=== PATIENT | male | born 1990 | race Caucasian/White ===

== ENCOUNTER 2020-08-16 07:44 | Day surgery (SDC) | payer BC, OTHER ==
[2020-08-16] MEDS ORDERED: Ondansetron 4 MG/2 ML SDV IVPUSH ONE (08:06)
[2020-08-16] MEDS ORDERED: Lactated Ringers 1,000 ML IV SCH ×3 (08:15→12:45)
--- NOTE | 2020-08-16 09:29 | EDM.PDOC ---
ED HPI GENERAL MEDICAL PROBLEM - General Chief Complaint: Gastrointestinal Problem Stated Complaint: APPENDIX Time Seen by Provider: 08/16/20 07:56 - History of Present Illness INITIAL COMMENTS - FREE TEXT/NARRATIVE: CHIEF COMPLAINT(S): Abdominal pain HISTORY OF PRESENT ILLNESS: This is a 30-year-old man without any significant past medical history who was sent in from [facility] with appendicitis who comes to the emergency department with a chief complaint of abdominal pain. The patient states that he started to experience vomiting yesterday but has not been able to tolerate any p.o. He denies any hematemesis or bilious emesis. He states that the pain got worse overnight and he describes the pain as sharp right lower quadrant without any radiation. He states that his pain is 6 out of 10. He denies any aggravating or relieving symptoms. He states that he went to the emergency department at the request of his and was diagnosed with appendicitis. He states that his pain is better and he is still experiencing some nausea. He denies any fevers, chills, diarrhea, melena, or hematochezia. He states that his last meal was on Saturday and he last had water approximately 8 hours ago. REVIEW OF SYSTEMS: Constitutional: Denies fever, chills. Eyes: Denies eye pain Ears, Nose, Mouth, & Throat: Denies earache Cardiovascular: Denies chest pain Respiratory: Denies shortness of breath Gastrointestinal: Positive for nausea and vomiting and abdominal pain. Denies diarrhea, hematemesis, bilious emesis, hematochezia, melena Genitourinary: Denies hematuria Skin:Denies a rash Neurological: Denies blurred vision Psychiatric: Denies depression PAST MEDICAL HISTORY: As per history of present illness and as reviewed below otherwise noncontributory. SURGICAL HISTORY: As per history of present illness and as reviewed below otherwise noncontributory. SOCIAL HISTORY: As per history of present illness and as reviewed below otherwise noncontributory. FAMILY HISTORY: As per history of present illness and as reviewed below otherwise noncontributory. EXAMINATION OF ORGAN SYSTEMS/BODY AREAS: Constitutional: Blood pressure is 106/57, heart rate 81, respiratory rate 20 with an oxygen saturation 95% on room air. Temperature 35.7 General: Overall well-appearing man who is in no acute distress Psychiatric: Appropriate mood and affect. Eyes: No scleral icterus or conjunctival erythema ENMT: Moist mucous membranes. No pharyngeal erythema Cardiovascular: Regular, rate, and rythym. No gallops, murmurs, or rubs. Bilateral upper extremity pulses symmetric and intact. No peripheral edema. No JVD. Respiratory: Lungs clear to auscultation bilaterally. No wheezes, rales, or rhonchi. Gastrointestinal: Soft, nondistended, tenderness to palpation in the right lower quadrant. No rebound or guarding. Genitourinary: No suprapubic tenderness Musculoskeletal: Normal range of motion. Skin: No lesions or abrasions. Neurological: Alert, GCS 15 MEDICAL DECISION MAKING AND COURSE IN THE ED WITH INTERPRETATION/REVIEW OF DIAGNOSTIC STUDIES: This is a 30-year-old man without any significant past medical history who comes to the emergency department from [facility] after being accepted for transfer and admission by Dr. Chávez for acute appendicitis. At this time I did review the patient's chart which was faxed over which did reveal a leukocytosis of 13.3 with neutrophilic predominance. BMP is unremarkable. Covid rapid was negative. CT report was sent with the patient which did reveal acute uncomplicated appendicitis without any free air, fistula, or abscess. We did contact [facility] who was able to transfer the images to our system. At this time I will start the patient on maintenance fluids and make the patient n.p.o. I also provide the patient with 4 mg of Zofran for nausea. Patient stated his pain was improved and did not request pain medication at this time. We will obtain a coronavirus swab for admission here. On reevaluation, the patient continued to remain stable and had no worsening of his abdominal pain. Laboratory: Coronavirus is negative. On review of the records, the patient also had already received Zosyn this morning therefore no antibiotics will be given. Per request of Dr. Chávez I contacted Dr. Doyle and he stated he would come and evaluate the patient. Dr. Doyle came and evaluated the patient the patient will be admitted for same-day surgery. DISPOSITION: Patient was admitted for same-day surgery CONDITION: Fair PROCEDURES: None FINAL IMPRESSION(S)/DIAGNOSES: 1. Acute appendicitis Dieudonne Mendez M.D. right lower quadrant Pain Score (Numeric/FACES): 6 - Related Data Allergies Allergy/AdvReac Type Severity Reaction Status Date / Time No Known Allergies Allergy Verified 08/16/20 07:55 Home Meds: Home Meds . [No Known Home Meds] 08/16/20 [History] Past Medical History - Infectious Disease History Infectious Disease History: Reports: Chicken Pox - Past Surgical History HEENT Surgical History: Reports: Tonsillectomy GI Surgical History: Reports: Other (See Below) Other GI Surgeries/Procedures: hernia Social & Family History - Family History Family Medical History: No Pertinent Family History - Caffeine Use Caffeine Use: Reports: Coffee - Recreational Drug Use Recreational Drug Use: No ED ROS GENERAL - Review of Systems Review Of Systems: See Below ED EXAM, GI/ABD - Physical Exam Exam: See Below Course - Vital Signs Last Recorded V/S: Last Vital Signs Temp 36.6 C 08/16/20 13:29 Pulse 56 L 08/16/20 13:44 Resp 16 08/16/20 13:29 BP 110/65 08/16/20 13:44 Pulse Ox 97 08/16/20 13:44 - Orders/Labs/Meds Orders: Active Orders 24 hr Category Date Time Status Admission Status [Patient Status] [ADT] Routine ADT 08/16/20 14:22 Active Admission Status [Patient Status] [ADT] Stat ADT 08/16/20 09:58 Active Blood Glucose Check, Bedside [RC] PRN Care 08/16/20 11:45 Active Communication Order [RC] ROUTINE Care 08/16/20 10:33 Active Notify Provider Vital Signs [RC] ASDIRECTED Care 08/16/20 11:45 Active Oxygen Therapy [RC] PRN Care 08/16/20 11:45 Active RT Aerosol Therapy [RC] ASDIRECTED Care 08/16/20 11:45 Active RT Aerosol Therapy [RC] ASDIRECTED Care 08/16/20 11:45 Active Ready for Discharge [RC] PER UNIT ROUTINE Care 08/16/20 14:24 Active Verify Patient Consent Obtain [RC] ASDIRECTED Care 08/16/20 10:32 Active Vital Signs [RC] Q5M Care 08/16/20 11:45 Active Clear Liquid Diet [DIET] Diet 08/16/20 Dinner Active NPO [Nothing Per Oral Diet] [DIET] Diet 08/16/20 Lunch Active Nothing per Oral After Midnight Diet [DIET] Diet 08/16/20 Lunch Active Acetaminophen/oxyCODONE [Percocet 325-5 MG] Med 08/16/20 12:36 Active 1 tab PO Q6H PRN Albuterol [Proventil Neb Soln] Med 08/16/20 11:45 Active 2.5 mg NEB ONETIME PRN Atropine [Atropine 0.1 MG/ML] Med 08/16/20 11:45 Active 0.5 mg IVPUSH ASDIRECTED PRN Atropine [Atropine 0.1 MG/ML] Med 08/16/20 11:45 Active 1 mg IVPUSH ASDIRECTED PRN Dextrose 50% in Water Med 08/16/20 11:45 Active 50 ml IVPUSH ASDIRECTED PRN EPINEPHrine [EPINEPHrine 1:10,000] Med 08/16/20 11:45 Active 1 mg IVPUSH ASDIRECTED PRN HYDROmorphone [Dilaudid] Med 08/16/20 11:45 Active 0.5 mg IVPUSH .Q5MIN PRN Lactated Ringers [Ringers, Lactated] 1,000 ml Med 08/16/20 10:45 Active IV ASDIRECTED Lactated Ringers [Ringers, Lactated] 1,000 ml Med 08/16/20 12:45 Active IV ASDIRECTED Naloxone [Narcan] Med 08/16/20 11:45 Active 0.1 mg IVPUSH ASDIRECTED PRN Ondansetron [Zofran] Med 08/16/20 11:45 Active 4 mg IVPUSH ONETIME PRN Ondansetron [Zofran] Med 08/16/20 12:36 Active 4 mg IVPUSH Q8H PRN fentaNYL [Sublimaze] Med 08/16/20 11:45 Active 50 mcg IVPUSH Q5M PRN Medication Orders Albuterol (Proventil Neb Soln) 2.5 mg NEB ONETIME PRN PRN Reason: Wheezing Atropine Sulfate (Atropine 0.1 Mg/Ml) 0.5 mg IVPUSH ASDIRECTED PRN PRN Reason: Hypo-perfusion Atropine Sulfate (Atropine 0.1 Mg/Ml) 1 mg IVPUSH ASDIRECTED PRN PRN Reason: Hypo-Perfusion Dextrose/Water (Dextrose 50% In Water) 50 ml IVPUSH ASDIRECTED PRN PRN Reason: Hypoglycemia Epinephrine HCl (Epinephrine 1:10,000) 1 mg IVPUSH ASDIRECTED PRN PRN Reason: ACLS Guidelines Fentanyl (Sublimaze) 50 mcg IVPUSH Q5M PRN PRN Reason: Pain Hydromorphone HCl (Dilaudid) 0.5 mg IVPUSH .Q5MIN PRN PRN Reason: Pain (severe 7-10) Stop: 08/17/20 11:45 Lactated Ringer's (Ringers, Lactated) 1,000 mls @ 150 mls/hr IV ASDIRECTED HANNA Lactated Ringer's (Ringers, Lactated) 1,000 mls @ 125 mls/hr IV ASDIRECTED HANNA Last Admin: 08/16/20 14:11 Dose: 125 mls/hr Documented by: CAM Naloxone HCl (Narcan) 0.1 mg IVPUSH ASDIRECTED PRN PRN Reason: Respiratory Depression Ondansetron HCl (Zofran) 4 mg IVPUSH ONETIME PRN PRN Reason: Nausea/Vomiting Ondansetron HCl (Zofran) 4 mg IVPUSH Q8H PRN PRN Reason: Nausea/Vomiting Oxycodone/Acetaminophen (Percocet 325-5 Mg) 1 tab PO Q6H PRN PRN Reason: Pain Last Admin: 08/16/20 13:53 Dose: 1 tab Documented by: CAM Labs: Laboratory Tests 08/16/20 Range/Units 08:22 SARS-CoV-2 RNA (VERA) NEGATIVE (NEGATIVE) Meds: Medications Generic Name Dose Route Start Last Admin Trade Name Freq PRN Reason Stop Dose Admin Albuterol 2.5 mg 08/16/20 11:45 Proventil Neb Soln NEB ONETIME PRN Wheezing Atropine Sulfate 0.5 mg 08/16/20 11:45 Atropine 0.1 Mg/Ml IVPUSH ASDIRECTED PRN Hypo-perfusion Atropine Sulfate 1 mg 08/16/20 11:45 Atropine 0.1 Mg/Ml IVPUSH ASDIRECTED PRN Hypo-Perfusion Dextrose/Water 50 ml 08/16/20 11:45 Dextrose 50% In Water IVPUSH ASDIRECTED PRN Hypoglycemia Epinephrine HCl 1 mg 08/16/20 11:45 Epinephrine 1:10,000 IVPUSH ASDIRECTED PRN ACLS Guidelines Fentanyl 50 mcg 08/16/20 11:45 Sublimaze IVPUSH Q5M PRN Pain Hydromorphone HCl 0.5 mg 08/16/20 11:45 Dilaudid IVPUSH 08/17/20 11:45 .Q5MIN PRN Pain (severe 7-10) Lactated Ringer's 1,000 mls @ 150 mls/hr 08/16/20 10:45 Ringers, Lactated IV ASDIRECTED HANNA Lactated Ringer's 1,000 mls @ 125 mls/hr 08/16/20 12:45 08/16/20 14:11 Ringers, Lactated IV 125 mls/hr ASDIRECTED HANNA Administration Naloxone HCl 0.1 mg 08/16/20 11:45 Narcan IVPUSH ASDIRECTED PRN Respiratory Depression Ondansetron HCl 4 mg 08/16/20 11:45 Zofran IVPUSH ONETIME PRN Nausea/Vomiting Ondansetron HCl 4 mg 08/16/20 12:36 Zofran IVPUSH Q8H PRN Nausea/Vomiting Oxycodone/Acetaminophen 1 tab 08/16/20 12:36 08/16/20 13:53 Percocet 325-5 Mg PO 1 tab Q6H PRN Administration Pain Discontinued Medications Generic Name Dose Route Start Last Admin Trade Name Freq PRN Reason Stop Dose Admin Dexamethasone Confirm 08/16/20 11:56 Dexamethasone Administered 08/16/20 11:57 Dose 20 mg .ROUTE .STK-MED ONE Fentanyl Confirm 08/16/20 10:43 Sublimaze Administered 08/16/20 10:44 Dose 100 mcg .ROUTE .STK-MED ONE Glycopyrrolate Confirm 08/16/20 12:01 Robinul Administered 08/16/20 12:02 Dose 0.4 mg .ROUTE .STK-MED ONE Lactated Ringer's 1,000 mls @ 150 mls/hr 08/16/20 08:15 08/16/20 08:14 Ringers, Lactated IV 150 mls/hr ASDIRECTED HANNA Administration Bupivacaine HCl/Epinephrine Bitart Confirm 08/16/20 10:45 Sensorc Mpf 0.25%-Epi [id number] Administered 08/16/20 10:46 Dose 30 mls @ as directed .ROUTE .STK-MED ONE Acetaminophen Confirm 08/16/20 10:45 Ofirmev Administered 08/16/20 10:46 Dose 100 mls @ as directed .ROUTE .STK-MED ONE Piperacillin Sod/Tazobactam 50 mls @ 100 mls/hr 08/16/20 11:44 08/16/20 13:44 Sod 3.375 gm/ Sodium Chloride IV 08/16/20 12:13 Not Given ONETIME ONE Ketorolac Tromethamine Confirm 08/16/20 11:56 Toradol Administered 08/16/20 11:57 Dose 30 mg .ROUTE .STK-MED ONE Lidocaine HCl Confirm 08/16/20 10:44 Xylocaine-Mpf 1% Administered 08/16/20 10:45 Dose 5 ml .ROUTE .STK-MED ONE Midazolam HCl Confirm 08/16/20 10:43 Versed 1 Mg/Ml Administered 08/16/20 10:44 Dose 2 mg .ROUTE .STK-MED ONE Midazolam HCl Confirm 08/16/20 12:14 Versed 1 Mg/Ml Administered 08/16/20 12:15 Dose 2 mg .ROUTE .STK-MED ONE Octyl Cyanoacrylate Confirm 08/16/20 10:45 Dermabond Advance Administered 08/16/20 10:46 Dose 1 applic .ROUTE .STK-MED ONE Ondansetron HCl 4 mg 08/16/20 08:06 08/16/20 08:14 Zofran IVPUSH 08/16/20 08:07 4 mg ONETIME ONE Administration Ondansetron HCl Confirm 08/16/20 11:56 Zofran Administered 08/16/20 11:57 Dose 4 mg .ROUTE .STK-MED ONE Propofol Confirm 08/16/20 10:43 Diprivan 20 Ml Administered 08/16/20 10:44 Dose 200 mg .ROUTE .STK-MED ONE Rocuronium [place] Confirm 08/16/20 10:46 Rocuronium [place] Administered 08/16/20 10:47 Dose 50 mg .ROUTE .STK-MED ONE Departure - Departure Time of Disposition: 09:58 Disposition: Still A Patient 30 Clinical Impression: Appendicitis Qualifiers: Appendicitis type: acute appendicitis Acute appendicitis type: unspecified acute appendicitis type Qualified Code(s): K35.80 - Unspecified acute appendicitis - Discharge Information Sepsis Event Note (ED) - Evaluation Sepsis Screening Result: No Definite Risk - Focused Exam Vital Signs: Vital Signs Temp Pulse Resp BP Pulse Ox 08/16/20 13:44 56 L 110/65 97 08/16/20 13:29 36.6 C 60 16 106/59 L 96 08/16/20 13:24 60 15 107/55 L 95 08/16/20 13:19 79 15 109/63 94 L 08/16/20 13:13 55 L 15 103/59 L 95 08/16/20 13:08 62 16 105/60 94 L 08/16/20 13:03 60 17 110/63 95 08/16/20 12:58 56 L 14 107/65 95 08/16/20 12:53 54 L 16 112/66 98 08/16/20 12:48 60 11 L 110/63 97 08/16/20 12:42 57 L 12 116/65 97 08/16/20 12:37 51 L 15 122/68 97 08/16/20 12:36 36.6 C 60 15 130/71 96 08/16/20 07:55 35.7 C L 81 20 106/57 L 95 - My Orders Last 24 Hours: My Active Orders 08/16/20 09:58 Admission Status [Patient Status] [ADT] Stat 08/16/20 Lunch NPO [Nothing Per Oral Diet] [DIET] - Assessment/Plan Last 24 Hours: My Active Orders 08/16/20 09:58 Admission Status [Patient Status] [ADT] Stat 08/16/20 Lunch NPO [Nothing Per Oral Diet] [DIET]
--- NOTE | 2020-08-16 10:32 | PCM.SN.2 ---
- Free Text/Narrative Note: pt seen, chart reviewed, hp dictated; acute appendicitis, would benefit from timely surgery; ivf/iv abx on induction as pt already has zosyn in [place]; proceed w surgery; [id number]
[2020-08-16] MEDS ORDERED: fentaNYL 100 MCG/2 ML SDV ONE (10:43)
[2020-08-16] MEDS ORDERED: Midazolam 1 MG/ML 2 ML SDV ONE ×2 (10:43→12:14)
[2020-08-16] MEDS ORDERED: Propofol 200 MG/20 ML SDV ONE (10:43)
[2020-08-16] MEDS ORDERED: Octyl 2-Cyanoacrylate 1 Tube ONE (10:45)
[2020-08-16] MEDS ORDERED: Bupivacaine 25%/EPINEPHrine/PF 30 ML ONE (10:45)
[2020-08-16] MEDS ORDERED: Succinylcholine/Sod PF 100 MG/5 ML SYRINGE IV ONE (10:46)
[2020-08-16] MEDS ORDERED: Rocuronium Bromide 50 MG/5 ML Syringe ONE (10:46)
--- NOTE | 2020-08-16 10:57 | PCM.PREANE ---
Preanesthetic Assessment - Physical Assessment Vital Signs: Last Vital Signs Temp 35.7 C L 08/16/20 07:55 Pulse 81 08/16/20 07:55 Resp 20 08/16/20 07:55 BP 106/57 L 08/16/20 07:55 Pulse Ox 95 08/16/20 07:55 Height: 2.06 m Weight: 108.862 kg - Lab Values: Laboratory Last Values SARS-CoV-2 RNA (VERA) NEGATIVE (NEGATIVE) 08/16/20 08:22 - Allergies Allergies/Adverse Reactions: Allergies Allergy/AdvReac Type Severity Reaction Status Date / Time No Known Allergies Allergy Verified 08/16/20 07:55 - Acknowledgements Anesthesia Type Planned: General Anesthesia PreAnesthesia Questionnaire - Infectious Disease History Infectious Disease History: Reports: Chicken Pox - Past Surgical History HEENT Surgical History: Reports: Tonsillectomy GI Surgical History: Reports: Other (See Below) Other GI Surgeries/Procedures: hernia - SUBSTANCE USE Tobacco Use Within Last Twelve Months: Snuff/Dip Recreational Drug Use History: No - HOME MEDS Home Medications: Home Meds . [No Known Home Meds] 08/16/20 [History] - CURRENT (IN HOUSE) MEDS Current Meds: Current Medications Lactated Ringer's (Ringers, Lactated) 1,000 mls @ 150 mls/hr IV ASDIRECTED [facility] Last Admin: 08/16/20 08:14 Dose: 150 mls/hr Documented by: Lactated Ringer's (Ringers, Lactated) 1,000 mls @ 150 mls/hr IV ASDIRECTED HANNA Discontinued Medications Fentanyl (Sublimaze) Confirm Administered Dose 100 mcg .ROUTE .STK-MED ONE Stop: 08/16/20 10:44 Bupivacaine HCl/Epinephrine Bitart (Sensorc Mpf 0.25%-Epi 1:[id number]) Confirm Administered Dose 30 mls @ as directed .ROUTE .STK-MED ONE Stop: 08/16/20 10:46 Acetaminophen (Ofirmev) Confirm Administered Dose 100 mls @ as directed .ROUTE .STK-MED ONE Stop: 08/16/20 10:46 Lidocaine HCl (Xylocaine-Mpf 1%) Confirm Administered Dose 5 ml .ROUTE .STK-MED ONE Stop: 08/16/20 10:45 Midazolam HCl (Versed 1 Mg/Ml) Confirm Administered Dose 2 mg .ROUTE .STK-MED ONE Stop: 08/16/20 10:44 Octyl Cyanoacrylate (Dermabond Advance) Confirm Administered Dose 1 applic .ROUTE .STK-MED ONE Stop: 08/16/20 10:46 Ondansetron HCl (Zofran) 4 mg IVPUSH ONETIME ONE Stop: 08/16/20 08:07 Last Admin: 08/16/20 08:14 Dose: 4 mg Documented by: Propofol (Diprivan 20 Ml) Confirm Administered Dose 200 mg .ROUTE .STK-MED ONE Stop: 08/16/20 10:44 Rocuronium [place] (Rocuronium [place]) Confirm Administered Dose 50 mg .ROUTE .STK-MED ONE Stop: 08/16/20 10:47
--- NOTE | 2020-08-16 11:09 | PCM.PREANE ---
Preanesthetic Assessment - Anesthesia/Transfusion/Family Hx Anesthesia History: Prior Anesthesia Without Reaction Family History of Anesthesia Reaction: No - Review of Systems General: No Symptoms Pulmonary: No Symptoms Cardiovascular: No Symptoms Gastrointestinal: Abdominal Pain Neurological: No Symptoms Other: Reports: None - Physical Assessment NPO Status Date: 08/15/20 Vital Signs: Last Vital Signs Temp 96.3 F L 08/16/20 07:55 Pulse 81 08/16/20 07:55 Resp 20 08/16/20 07:55 BP 106/57 L 08/16/20 07:55 Pulse Ox 95 08/16/20 07:55 Height: 6 ft 9 in Weight: 108.862 kg ASA Class: 1 Mental Status: Alert & Oriented x3 Airway Class: Mallampati = 2 Dentition: Reports: Normal Dentition ROM/Head Extension: Full Lungs: Clear to Auscultation, Normal Respiratory Effort Cardiovascular: Regular Rate, Regular Rhythm - Lab Values: Laboratory Last Values SARS-CoV-2 RNA (VERA) NEGATIVE (NEGATIVE) 08/16/20 08:22 - Allergies Allergies/Adverse Reactions: Allergies Allergy/AdvReac Type Severity Reaction Status Date / Time No Known Allergies Allergy Verified 08/16/20 07:55 - Blood Blood Available: No - Anesthesia Plan Pre-Op Medication Ordered: None - Acknowledgements Anesthesia Type Planned: General Anesthesia Pt an Appropriate Candidate for the Planned Anesthesia: Yes Alternatives and Risks of Anesthesia Discussed w Pt/Guardian: Yes Pt/Guardian Understands and Agrees with Anesthesia Plan: Yes PreAnesthesia Questionnaire - Infectious Disease History Infectious Disease History: Reports: Chicken Pox - Past Surgical History HEENT Surgical History: Reports: Tonsillectomy GI Surgical History: Reports: Other (See Below) Other GI Surgeries/Procedures: hernia - SUBSTANCE USE Tobacco Use Within Last Twelve Months: Snuff/Dip Recreational Drug Use History: No - HOME MEDS Home Medications: Home Meds . [No Known Home Meds] 08/16/20 [History] - CURRENT (IN HOUSE) MEDS Current Meds: Current Medications Lactated Ringer's (Ringers, Lactated) 1,000 mls @ 150 mls/hr IV ASDIRECTED HANNA Last Admin: 08/16/20 08:14 Dose: 150 mls/hr Documented by: Lactated Ringer's (Ringers, Lactated) 1,000 mls @ 150 mls/hr IV ASDIRECTED HANNA Discontinued Medications Fentanyl (Sublimaze) Confirm Administered Dose 100 mcg .ROUTE .STK-MED ONE Stop: 08/16/20 10:44 Bupivacaine HCl/Epinephrine Bitart (Sensorc Mpf 0.25%-Epi 1:[id number]) Confirm Administered Dose 30 mls @ as directed .ROUTE .STK-MED ONE Stop: 08/16/20 10:46 Acetaminophen (Ofirmev) Confirm Administered Dose 100 mls @ as directed .ROUTE .STK-MED ONE Stop: 08/16/20 10:46 Lidocaine HCl (Xylocaine-Mpf 1%) Confirm Administered Dose 5 ml .ROUTE .STK-MED ONE Stop: 08/16/20 10:45 Midazolam HCl (Versed 1 Mg/Ml) Confirm Administered Dose 2 mg .ROUTE .STK-MED ONE Stop: 08/16/20 10:44 Octyl Cyanoacrylate (Dermabond Advance) Confirm Administered Dose 1 applic .ROUTE .STK-MED ONE Stop: 08/16/20 10:46 Ondansetron HCl (Zofran) 4 mg IVPUSH ONETIME ONE Stop: 08/16/20 08:07 Last Admin: 08/16/20 08:14 Dose: 4 mg Documented by: Propofol (Diprivan 20 Ml) Confirm Administered Dose 200 mg .ROUTE .STK-MED ONE Stop: 08/16/20 10:44 Rocuronium [place] (Rocuronium [place]) Confirm Administered Dose 50 mg .ROUTE .STK-MED ONE Stop: 08/16/20 10:47
[2020-08-16] MEDS ORDERED: Piperacillin/Tazobactam 3.375 GM in Sodium Chloride 0.9% 50 ML IV ONE (11:44)
[2020-08-16] MEDS ORDERED: EPINEPHrine 1:10,000 1 MG/10 ML Syringe IVPUSH PRN (11:45)
[2020-08-16] MEDS ORDERED: Ondansetron 4 MG/2 ML SDV IVPUSH PRN ×2 (11:45→12:36)
[2020-08-16] MEDS ORDERED: Naloxone 0.4 MG/ML Syringe IVPUSH PRN (11:45)
[2020-08-16] MEDS ORDERED: HYDROmorphone 2 MG/ML Syringe IVPUSH PRN (11:45)
[2020-08-16] MEDS ORDERED: fentaNYL 100 MCG/2 ML SDV IVPUSH PRN (11:45)
[2020-08-16] MEDS ORDERED: Albuterol 0.083% 2.5 MG/3 ML Neb Soln NEB PRN (11:45)
[2020-08-16] MEDS ORDERED: 50% Dextrose in Water 50 ML Syringe IVPUSH PRN (11:45)
[2020-08-16] MEDS ORDERED: Atropine 0.1 MG/ML 10 ML Syringe IVPUSH PRN ×2 (11:45)
[2020-08-16] MEDS ORDERED: Ondansetron 4 MG/2 ML SDV ONE (11:56)
[2020-08-16] MEDS ORDERED: Dexamethasone 4 MG/ML 5 ML MDV ONE (11:56)
[2020-08-16] MEDS ORDERED: Ketorolac 30 MG/ML SDV ONE (11:56)
[2020-08-16] MEDS ORDERED: Glycopyrrolate 0.2 MG/ML SDV ONE (12:01)
--- NOTE | 2020-08-16 12:35 | PCM.OPNOTE ---
- General Post-Op/Procedure Note Date of Surgery/Procedure: 08/16/20 Operative Procedure(s): lap appendectomy Findings: appendix is dilated and covered w exudate and engulfed by surrounding organs cw appendicitis suppurativia; gross perf not observed [id number] Pre Op Diagnosis: acute appendicitis Post-Op Diagnosis: Same Anesthesia Technique: General ET Tube Primary Surgeon: George Doyle Pathology: sent Complications: None Condition: Good
[2020-08-16] MEDS ORDERED: Acetaminophen/oxyCODONE 325-5 MG Tab PO PRN (12:36)
--- NOTE | 2020-08-16 13:13 | PCM.POSTAN ---
POST ANESTHESIA ASSESSMENT - MENTAL STATUS Mental Status: Alert, Oriented - VITAL SIGNS Vital Signs: Last Vital Signs Temp 97.9 F 08/16/20 12:36 Pulse 62 08/16/20 13:08 Resp 16 08/16/20 13:08 BP 105/60 08/16/20 13:08 Pulse Ox 94 L 08/16/20 13:08 - RESPIRATORY Respiratory Status: Respiratory Rate WNL, Airway Patent, O2 Saturation Stable - CARDIOVASCULAR CV Status: Pulse Rate WNL, Blood Pressure Stable - GASTROINTESTINAL GI Status: No Symptoms - POST OP HYDRATION Hydration Status: Adequate & Stable
--- NOTE | 2020-08-16 13:32 | OR ---
SURGEON: George Doyle MD DATE OF PROCEDURE: 08/16/2020 PREOPERATIVE DIAGNOSIS: Acute appendicitis. POSTOPERATIVE DIAGNOSIS: Acute appendicitis. PROCEDURE PERFORMED: Laparoscopic appendectomy. PRIMARY SURGEON: George Doyle MD COMPLICATIONS: None. FINDINGS: Appendix was enlarged with lots of exudate covering the appendix and also severely engulfed by surrounding organ and omentum consistent with appendicitis suppurativa. Gross perforation is not observed. DESCRIPTION OF PROCEDURE: The patient was taken to the operating room and placed in the supine position. Following induction of general endotracheal anesthesia, the patient's abdomen was prepped and draped in the sterile fashion. A time-out has been called. The patient was identified. The procedure was identified. The antibiotics were identified. The procedure then proceeded. The abdomen was prepped and draped in a standard fashion. After assessment of appropriate landmarks, a 12 millimeter trocar was inserted supraumbilically using Optiview and pneumoperitoneum was then achieved. This was followed with placement of 5 millimeter port in the right upper quadrant and another 5 millimeter port infraumbilically. The camera was inserted supraumbilical site and two laparoscopic [place] retractors were then inserted through the other two sites. Following the cecum, the appendix was located. The appendix was then lifted up, and using a GI stapler the appendix was amputated at the base. And using the GI stapler, the mesoappendix was then amputated. The appendix was retrieved by an endoscopic bag and sent for pathologist. This was then followed by re-insertion of the camera to examine the staple line, and hemostasis. The trocars were then removed. The umbilical site was closed with 2-0 Vicryl deep stitch and 4 -0 Vicryl and Dermabond; the other 2 5 mm port sites were closed with 4-0 Vicryl and Dermabond. The patient was then awakened, extubated, and transferred to the recovery room in hemodynamically stable condition. Prior to closing, sponge count and instrument count was correct. Dr. Doyle was present throughout the whole procedure. As always, thank you for the kind referral. JESSICA / HANNAH /[id number]
--- NOTE | 2020-08-16 14:21 | HP ---
DATE OF : 1990 PRIMARY CARE PHYSICIAN: None PCP This is a patient who comes from [place] after confirmed appendicitis by CAT scan. HISTORY OF PRESENT ILLNESS: The patient is a 30-year-old large-built gentleman, tall, BMI of 26, and complained of a 2-day history of gradual onset of periumbilical pain, subsequently migrated to the right lower quadrant. The patient is from [place], seen in emergency room there at around 4 a.m. in the morning and CAT scan shows dilated appendicitis and no perforation. The patient was then sent to our facility for further management. The patient drove by himself and finally I got a call about 6 hours later, around 9:30. The patient currently complains about pain and also threw up every 15 minutes and the last time he ate was 1 day ago and denied prior episode. Denied fever, chill, or diarrhea. PAST MEDICAL HISTORY: Significant for no diabetes, OH, CVA, or hypertension. FAMILY HISTORY: Noncontributory. HOME MEDICATIONS: Please refer to nursing for detail. ALLERGIES: Please refer to nursing for detail. PAST SURGICAL HISTORY: The patient has inguinal hernia repair on both sides. PHYSICAL EXAMINATION: GENERAL: A very pleasant gentleman, smiled to the doctor, very polite, very pleasant, complaining about right lower quadrant pain. HEENT: Normocephalic and atraumatic. Sclerae anicteric. LUNGS: Clear to auscultation. HEART: Regular rate and rhythm. ABDOMEN: Soft, nondistended. No pulsating tender midline abdominal structure. No surgical scar, maybe a small umbilical hernia. Exquisite tenderness at McBurney point. No rebound tenderness. According to the ER doctor over there, the patient has leukocytosis. I do not have the information in front of me right now. CAT scan showed dilated appendix with no free air. IMPRESSION: Physical exam and imaging study and lab work consistent with acute appendicitis. The patient would benefit from timely appendectomy surgery. Risks and benefits discussed with the patient including bleeding and infection in postop course and pain management, and the patient concurred to proceed with plan. We will proceed with IV line and put in IV fluid. The patient will probably need another dose of antibiotic as it has been 6 hours since he got the last dose in [place] and proceed with surgery. As always, thank you for the kind referral. JESSICA / HANNAH /[id number]
== END 2020-08-16 18:30 | disposition home or self-care (01) ==
LOC: MW.ED 07:44 → MW.SDS 10:23 → MW.MS 10:27 → MW.SDS 18:30
PROVIDERS: ATTEND Surgery
DX: K35.80 Unspecified acute appendicitis (principal); F17.220 Nicotine dependence, chewing tobacco, uncomplicated; Z98.890 Other specified postprocedural states; Z01.812 Encounter for preprocedural laboratory examination; Z20.828 Contact with and (suspected) exposure to other viral communicable diseases
CPT/HCPCS: 44970; 87635; 88304; 96361; 96374; 99285; A9270; C1776; J0131; J0330; J1100; J1885; J2001; J2250; J2405; J2704; J3490; J7120; 00840; 99284; J3010; U0002